=== PATIENT | female | born 1955 | race Caucasian/White ===

== ENCOUNTER 2025-02-04 12:34 | Inpatient (IN) | payer MEDICARE ==
[~2025-02-04] VITALS: Ht 144.7 cm; Wt 72.6 kg
[~2025-02-04 12:34] MED LIST: NKHM
[2025-02-04 12:41] VITALS: BP 112/86
[2025-02-04] MEDS ORDERED: SODIUM CHLORIDE 0.9% 1,000 ML IV ONE (12:55)
[2025-02-04 13:14] LABS: MEAN CELL VOLUME 91.8 fl (81.0-99.0); MEAN CORPUSCULAR HGB 30.9 pg (27.0-31.0); MEAN PLATELET VOLUME 10.9 fl (9.6-12.3); NUCLEATED RED BLOOD CELL 0.0 % (0.0-0.0); NUCLEATED RED BLOOD CELL 0.0 10*3/uL (0.0-0.0); PLATELET COUNT AUTOMATED 358 10*3/uL (130-400); RED CELL DISTRI WIDTH 13.9 % (0-14.5)
[2025-02-04 13:15] LABS: MANUAL DIFF REFLEX YES
[2025-02-04] MEDS ORDERED: CLOPIDOGREL75 MG PO (13:21)
[2025-02-04] MEDS ORDERED: LOSARTAN-HCTZ1 EAC2 PO (13:21)
[2025-02-04] MEDS ORDERED: AMLODIPINE BESYL5 MG PO (13:21)
[2025-02-04] MEDS ORDERED: ROSUVASTATIN CA10 MG PO (13:21)
[2025-02-04] MEDS ORDERED: OMEPRAZOLE40 MG PO (13:22)
[2025-02-04 13:28] LABS: ACT PARTIAL THROMBO TIME 25.1 SECONDS (20.0-32.1)
[2025-02-04 13:34] LABS: BUN 18.0 mg/dl (9-23)
[2025-02-04 13:38] LABS: PLATELET SUFFICIENCY NORMAL (NORMAL)
[2025-02-04 14:14] LABS: BILIRUBIN Negative (Negative); BLOOD 2+ (Negative); CLARITY Cloudy (Clear); COLOR Dark Yellow (Yellow); KETONE Trace (Negative); LEUKO ESTERASE 1+ (Negative); NITRITE Negative (Negative); PH 6.0 (4.5-8.0); SPECIFIC GRAVITY 1.020 (1.001-1.030); UROBILINOGEN 1.0 E.U./dl (0.0-1.0)
[2025-02-04 14:28] LABS: BACTERIA 2+; EPITHELIAL CELLS 16-20; MUCOUS 2+
[2025-02-04] MEDS ORDERED: Ondansetron Hydrochloride 4 MG/2 ML VIAL IV ONE (14:35)
[2025-02-04] MEDS ORDERED: POTASSIUM CHLORIDE 20 MEQ TAB PO ONE (14:45)
[2025-02-04] MEDS ORDERED: BISACODYL 10 MG SUPP R PRN (16:10)
[2025-02-04] MEDS ORDERED: BISACODYL 5 MG TAB PO PRN (16:10)
[2025-02-04] MEDS ORDERED: ACETAMINOPHEN 650 MG SUPP R PRN (16:10)
[2025-02-04] MEDS ORDERED: Acetaminophen/Hydrocodone 5 MG/325 MG TABLET PO PRN (16:10)
[2025-02-04] MEDS ORDERED: TEMAZEPAM 15 MG CAP PO PRN (16:10)
[2025-02-04] MEDS ORDERED: ACETAMINOPHEN 325 MG TAB PO PRN (16:10)
[2025-02-04] MEDS ORDERED: Ondansetron Hydrochloride 4 MG/2 ML VIAL IV PRN (16:10)
[2025-02-04] MEDS ORDERED: SODIUM CHLORIDE 0.9% 1,000 ML IV SCH (17:10)
[2025-02-04 18:12] VITALS: BP 106/73
[2025-02-04] MEDS ORDERED: OXYCODONE-ACET1 EACH PO (18:21)
[2025-02-04 20:00] VITALS: BP 141/71
[2025-02-04] MEDS ORDERED: CARVEDILOL 3.125 MG TAB PO SCH (22:00)
[2025-02-04] MEDS ORDERED: ATORVASTATIN CALCIUM 40 MG TABLET PO SCH (22:00)
[2025-02-04] MEDS ORDERED: Acetaminophen/Oxycodone Hydr 7.5 MG/325 MG TABLET PO SCH (22:00)
[2025-02-05] VITALS: BP 104/61
[2025-02-05] MEDS ORDERED: OMEPRAZOLE 20 MG CAP PO SCH (06:00)
[2025-02-05 06:39] LABS: BASO # 0.0 10*3/uL (0.0-0.1); BASO % 0.3 % (0.0-1.0); EOS # 0.1 10*3/uL (0.0-0.4); EOS % 0.4 % (1.0-4.0); MEAN CORPUSCULAR HGB 31.3 pg (27.0-31.0); MEAN PLATELET VOLUME 11.4 fl (9.6-12.3); MONO # 0.9 10*3/uL (0.1-1.0); MONO % 6.4 % (3.0-9.0); NEUT # 9.2 10*3/uL (2.3-7.9); NEUT % 66.3 % (47.0-73.0); NUCLEATED RED BLOOD CELL 0.0 % (0.0-0.0); NUCLEATED RED BLOOD CELL 0.0 10*3/uL (0.0-0.0); PLATELET COUNT AUTOMATED 267 10*3/uL (130-400); RED CELL DISTRI WIDTH 14.3 % (0-14.5)
[2025-02-05 06:50] LABS: MEAN CELL VOLUME 95.6 fl (81.0-99.0)
[2025-02-05 07:07] LABS: BUN 16 mg/dl (9-23); FREE T4 1.14 ng/dl (0.89-1.76); LDL CHOLESTEROL 102 mg/dL (9-159); SGPT/ALT 21 U/L (5-49)
[2025-02-05 07:32] LABS: VITAMIN D, 25-HYDROXY 108.2 ng/mL (30-100)
[2025-02-05 08:00] VITALS: BP 135/64
[2025-02-05] MEDS ORDERED: ASPIRIN, CHEWABLE 81 MG TAB PO SCH (10:00)
[2025-02-05] MEDS ORDERED: Clopidogrel Hydrogen Sulfate 75 MG TAB PO SCH (10:00)
[2025-02-05 12:00] VITALS: BP 130/65
[2025-02-05] MEDS ORDERED: CARVEDILOL3.125 MG PO (12:19)
[2025-02-05] MEDS ORDERED: OMNICEF300 MG PO (12:19)
[2025-02-05] MEDS ORDERED: LOSARTAN-HCTZ1 EAC2 PO (12:41)
[2025-02-05] MEDS ORDERED: ROSUVASTATIN CA10 MG PO (12:41)
[2025-02-05] MEDS ORDERED: AMLODIPINE BESYL5 MG PO (12:41)
[2025-02-05] MEDS ORDERED: CLOPIDOGREL75 MG PO (12:41)
[2025-02-05] MEDS ORDERED: OMEPRAZOLE40 MG PO (12:41)
[2025-02-05] MEDS ORDERED: PERFLUTREN PROTEIN-A MICROSPHR 3 ML VIAL IV ONE (13:21)
== END 2025-02-05 14:30 | disposition home or self-care (01) | DRG 871 ==
LOC: ED 12:34 → 4E 15:48 → EDHOLD 15:48 → 4E 18:04
PROVIDERS: Nurse Practitioner Family; Student in an Organized Health Care Education/Training Program; ADMIT Internal Medicine; ATTEND Internal Medicine
DX: A41.9 Sepsis, unspecified organism (principal); I21.4 Non-ST elevation (NSTEMI) myocardial infarction; N30.01 Acute cystitis with hematuria; E87.20 Acidosis, unspecified; K52.9 Noninfective gastroenteritis and colitis, unspecified; E86.0 Dehydration; R65.20 Severe sepsis without septic shock; E87.6 Hypokalemia; K21.9 Gastro-esophageal reflux disease without esophagitis; E78.2 Mixed hyperlipidemia; I10 Essential (primary) hypertension; Z66 Do not resuscitate; F41.9 Anxiety disorder, unspecified; Z90.710 Acquired absence of both cervix and uterus; Z90.89 Acquired absence of other organs; Z87.891 Personal history of nicotine dependence; Z82.49 Family history of ischemic heart disease and other diseases of the circulatory system; Z83.6 Family history of other diseases of the respiratory system; Z79.899 Other long term (current) drug therapy